=== PATIENT | female | born 1980 | race Caucasian/White ===

== ENCOUNTER 2022-05-30 18:32 | Emergency (ER) | payer BC ==
[2022-05-30 19:03] VITALS: BP 120/70; PULSE 77; RESP 18; TEMP 98; BMI 24.7
[2022-05-30] MEDS ORDERED: ACETAMINOPHEN 1000 MG/100 ML BAG IVPB ONE (20:53)
[2022-05-30] MEDS ORDERED: ACETAMINOPHEN INJECTION 100 ML IVPB ONE (21:26)
[2022-05-30 21:59] LABS: PH,URINE 7.5 (5.0-8.0); URINE APPEARANCE CLEAR; URINE BILIRUBIN NEGATIVE (NEGATIVE); URINE COLOR YELLOW; URINE GLUCOSE (UA) NEGATIVE (NEGATIVE); URINE KETONE NEGATIVE (NEGATIVE); URINE LEUK ESTERASE NEGATIVE (NEGATIVE); URINE NITRITE NEGATIVE (NEGATIVE); URINE PROTEIN NEGATIVE (NEGATIVE); URINE UROBILINOGEN 0.2 mg/dL (0.2-1.0)
[2022-05-30 22:00] LABS: BASO % 0.9 % (0-2.0); EOS % 2.7 % (0-4.5); HEMATOCRIT 35.1 % (32.4-45.2); HEMOGLOBIN 11.9 GM/dL (10.7-15.3); LYMPH % 43.7 % (8-40); MCH 29.3 pg (25.7-33.7); MCHC 33.9 g/dl (32.0-36.0); MEAN CELL VOLUME 86.5 fl (80-96); MEAN PLT VOLUME 7.4 fl (7.5-11.1); MONO % 10.3 % (3.8-10.2); NEUT % 42.4 % (42.8-82.8); PLATELET COUNT 365 10^3/uL (134-434); RBC 4.06 M/mm3 (3.60-5.2); RDW 13.8 % (11.6-15.6); WHITE BLOOD COUNT 9.6 K/mm3 (4.0-10.0)
[2022-05-30 22:21] LABS: BLOOD UREA NITROGEN 13.9 mg/dL (7-18); CALCIUM 8.7 mg/dL (8.5-10.1)
[2022-05-30 22:22] LABS: ALBUMIN 3.3 g/dl (3.4-5.0)
[2022-05-30 22:25] LABS: CREATININE 0.5 mg/dL (0.55-1.3)
[2022-05-30 22:26] LABS: BILIRUBIN,TOTAL 0.4 mg/dL (0.2-1); TOT PROT 7.2 g/dl (6.4-8.2)
[2022-05-30 23:42] LABS: CALCIUM 8.3 mg/dL (8.5-10.1)
[2022-05-30 23:43] LABS: BLOOD UREA NITROGEN 14.1 mg/dL (7-18)
[2022-05-30 23:46] LABS: CREATININE 0.5 mg/dL (0.55-1.3)
[2022-05-31] MEDS ORDERED: KETOROLAC TROMETHAMINE 15 MG/ML VIAL IVPUSH ONE (00:52)
[2022-05-31] MEDS ORDERED: KETOROLAC TROMETHAMINE 15 MG/ML VIAL ONE (01:14)
== END 2022-05-31 01:34 | disposition home or self-care (01) ==
LOC: JER 18:32
PROC: 3E033NZ Introduction of Analgesics, Hypnotics, Sedatives into Peripheral Vein, Percutaneous Approach (ICD-10-PCS; principal; 2022-05-30)
PROC: 3E0333Z Introduction of Anti-inflammatory into Peripheral Vein, Percutaneous Approach (ICD-10-PCS; 2022-05-30)
DX: R10.30 Lower abdominal pain, unspecified (principal); R10.2 Pelvic and perineal pain; N89.8 Other specified noninflammatory disorders of vagina; N83.202 Unspecified ovarian cyst, left side; R68.83 Chills (without fever); R53.1 Weakness
CPT/HCPCS: 36415; 76830-TC; 80048; 80053; 81003; 84703; 85025; 87086; 87491; 87591; 99284-25